=== PATIENT | male | born 1980 | race Caucasian/White ===

== ENCOUNTER 2016-11-30 15:42 | Emergency (ER) | payer OTHER ==
[2016-11-30 15:48] VITALS: BP 116/70; PULSE 66; TEMP 98.3; BMI 28.1
--- NOTE | 2016-11-30 16:14 | PDOC ---
History of Present Illness - General Chief Complaint: Diarrhea Stated Complaint: DIARRHEA X 4 DAYS Time Seen by Provider: 11/30/16 15:59 History Source: Patient Exam Limitations: No Limitations - History of Present Illness Travel History: No Initial Comments: 11/30/16 16:10 35 yr male presents to ER with c/o diarrhea for 3 days after eating a gyro at a restaurant. Pt's brother ate same thing and had diarrhea as well. No vomiting, no fever ro chills, pt states had fever on first day. Pt is eating and drinking well, denies abd pain or urianry complaints. no medical history. Past History - Past Medical History Allergies/Adverse Reactions: Allergies Allergy/AdvReac Type Severity Reaction Status Date / Time No Known Allergies Allergy Verified 11/30/16 15:47 Home Medications: Ambulatory Orders NK [No Known Home Medication] 11/30/16 - Psycho/Social/Smoking Cessation Hx Suicidal Ideation: No Smoking History: Never smoked *Physical Exam - Vital Signs Last Vital Signs Temp Pulse Resp BP Pulse Ox 98.3 F 66 18 116/70 99 11/30/16 15:47 11/30/16 15:47 11/30/16 15:47 11/30/16 15:47 11/30/16 15:47 - Physical Exam General Appearance: Yes: Nourished, Appropriately Dressed HEENT: positive: EOMI, VIRA, Normal ENT Inspection, TMs Normal, Pharynx Normal Neck: positive: Supple. negative: Tender Respiratory/Chest: positive: Lungs Clear, Normal Breath Sounds. negative: Chest Tender Cardiovascular: positive: Regular Rhythm, Regular Rate Gastrointestinal/Abdominal: positive: Normal Bowel Sounds, Soft. negative: Tender, Distended, Guarding, Rebound, Tenderness Male Genitalia: positive: normal genitalia Rectal Exam: positive: deferred Lymphatic: negative: Adenopathy Musculoskeletal: positive: Normal Inspection Extremity: positive: Normal Capillary Refill, Normal Inspection, Normal Range of Motion Integumentary: positive: Normal Color, Dry, Warm Neurologic: positive: Fully Oriented, Alert, Normal Mood/Affect, Normal Response , Motor Strength 5/5 Medical Decision Making - Medical Decision Making 11/30/16 16:15 cc: diarrhea for 3 days after eating out no fever, no vomiting or abd pain last episode of loose stool this morning pt well hydrated will continue to adequately hydrate strict follow up discussed pt undernstands and agrees with dc plan *DC/Admit/Observation/Transfer Diagnosis at time of Disposition: Diarrhea Qualifiers: Diarrhea type: unspecified type Qualified Code(s): R19.7 - Diarrhea, unspecified - Discharge Dispostion Disposition: HOME Condition at time of disposition: Good - Referrals Referrals: Shanti Martinez MD [Primary Care Provider] - - Patient Instructions Additional Instructions: continue to drink pleanty of fluids Banannas, rice, applesauce toast follow with your doctor in 2-3 days if symptoms continue or worsen Return to ER for any bloody diarrhea, fever, abdominal pain or other concerns
== END 2016-11-30 16:24 | disposition home or self-care (01) ==
LOC: JERFT 15:42
DX: R19.7 Diarrhea, unspecified (principal)
CPT/HCPCS: 99281-25